=== PATIENT | female | born 1945 | race Two or more races ===

== ENCOUNTER 2021-07-02 02:35 | Emergency (ER) | payer MEDICARE ==
[~2021-07-02] VITALS: Ht 154.9 cm; Wt 74.8 kg
[~2021-07-02 02:35] MED LIST: CARVEDILOL12.5 MG PO; LANTUS100 UNITS/ SQ; NITROSTAT0.4 MG SL; NOVOLOG100 UNIT/1 SQ; OMEPRAZOLE20 M1 PO; PLAVIX75 MG PO; PRAVACHOL40 MG PO; SYNTHROID88 MCG PO
[2021-07-02] MEDS ORDERED: TRAMADOL HCL 50 MG TAB PO ONE (03:00)
[2021-07-02 03:14] LABS: BASOPHILS # (AUTO) 0.1 (0.0-0.1); BASOPHILS % 0.4 % (0.0-1.0); EOSINOPHILS # (AUTO) 0.4 (0.0-0.4); EOSINOPHILS % 2.9 % (0.0-6.0); HEMATOCRIT 43.4 % (34.2-44.1); HEMOGLOBIN 14.9 g/dL (12.0-16.0); LYMPHOCYTES # (AUTO) 3.6 (1.0-3.2); LYMPHOCYTES % 24.7 % (18.0-39.1); MEAN CORPUSCULAR HEMOGLOBIN 28.9 pg (28-32); MEAN CORPUSCULAR HGB CONC 34.3 g/dL (31-35); MEAN CORPUSCULAR VOLUME 84.3 fL (81-99); MONOCYTES % 6.6 % (4.4-11.3); NEUTROPHILS # (AUTO) 9.4 (2.1-6.9); NEUTROPHILS % 64.8 % (38.7-80.0); PLATELET COUNT 337 x10e3/uL (140-360); RED BLOOD COUNT 5.15 x10e6/uL (3.6-5.1); RED CELL DISTRIBUTION WIDTH 13.6 % (11.7-14.4)
[2021-07-02 03:28] LABS: ALBUMIN 3.6 g/dL (3.5-5.0); ALBUMIN/GLOBULIN RATIO 0.7 (0.8-2.0); CALCIUM 9.4 mg/dL (8.4-10.2); CREATININE, SERUM 1.18 mg/dL (0.57-1.11)
== END 2021-07-02 04:15 | disposition home or self-care (01) ==
LOC: ER 02:46
DX: M54.2 Cervicalgia (principal); E11.65 Type 2 diabetes mellitus with hyperglycemia; I10 Essential (primary) hypertension; E03.9 Hypothyroidism, unspecified
CPT/HCPCS: 36415; 71045; 80053; 82550; 82553; 84484; 85025; 93005; 99284

== ENCOUNTER 2022-01-02 17:16 | Emergency (ER) | payer MEDICARE ==
[~2022-01-02] VITALS: Ht 154.9 cm; Wt 74.8 kg
[2022-01-02 18:17] LABS: CLARITY,URINE CLEAR (CLEAR)
[2022-01-02 18:18] LABS: COLOR,URINE YELLOW (YELLOW); KETONES,URINE NEGATIVE (NEGATIVE); LEUKOCYTE ESTERASE ,URINE SMALL (NEGATIVE); NITRITE,URINE POSITIVE (NEGATIVE); PROTEIN,URINE DIPSTICK NEGATIVE (NEGATIVE); URINE UROBILINOGEN 0.2 mg/dL (0.2 - 1)
[2022-01-02 18:22] LABS: BACTERIA,URINE FEW /HPF; EPITHELIAL CELLS,URINE RARE /LPF; WBC,URINE (MAN) >50 /HPF (0-5)
[2022-01-02] MEDS ORDERED: HYDROCODONE/APAP 5MG-325MG TAB PO NR (18:45)
[2022-01-02] MEDS ORDERED: DITROPAN XL5 MG PO (18:51)
[2022-01-02] MEDS ORDERED: HYDROCODON-ACE1 EA11 PO (18:51)
[2022-01-02 18:57] VITALS: BP 126/71
== END 2022-01-02 19:03 | disposition home or self-care (01) ==
LOC: ER 17:35
DX: R39.89 Other symptoms and signs involving the genitourinary system (principal); N39.0 Urinary tract infection, site not specified; R33.9 Retention of urine, unspecified; I10 Essential (primary) hypertension; E11.9 Type 2 diabetes mellitus without complications; E03.9 Hypothyroidism, unspecified
CPT/HCPCS: 51700; 81001; 87086; 87186; 99284